=== PATIENT | female | born 1995 | race African-American/Black ===

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

== ENCOUNTER → 2017-01-28 | Outpatient (CLI) | payer OTHER ==
[~2017-01-28] MED LIST changes: +ONDA4TAB10 SL; +PREN1TAB58 PO
--- NOTE | 2017-01-29 08:28 | RAD ---
Obstetrical ultrasound, 01/28/2017: History: screening Transabdominal scans were obtained. There is a single intrauterine fetus in a cephalic orientation. The biparietal diameter measures 4.1 cm compatible with a gestational age of 18-19 weeks. This corresponds well with the other measurements and yields a sonographic EDC of 06/28/2017. This is the same EDC established on the original ultrasound exam of 10/31/2016. Normal activity and heart motion were seen. The heart rate is 144 bpm. No specific abnormality is detected. The placenta is centered laterally on the right with no evidence of a placenta previa. A normal amount of amniotic fluid is present. The cervical length is 3.7 cm. IMPRESSION: Single viable intrauterine fetus of 18-19 weeks gestational age as described above.
== END | disposition home or self-care (01) ==
LOC: US 16:01
PROVIDERS: ATTEND Obstetrics & Gynecology
DX: O09.92 Supervision of high risk pregnancy, unspecified, second trimester (principal); O26.842 Uterine size-date discrepancy, second trimester; Z3A.19 19 weeks gestation of pregnancy
CPT/HCPCS: 76805

== ENCOUNTER 2017-08-29 04:11 | Emergency (ER) | payer SELFPAY, OTHER ==
[2017-08-29 04:26] LABS: URINE HCG POC HCG NEGATIVE (Negative)
[2017-08-29] MEDS: KETOROLAC 30 MG/ML INJ. IV (04:53)
[2017-08-29 05:01] LABS: ADD MAN DIFF? NO
[2017-08-29 05:10] LABS: BASO # 0.1 x10^3/uL (0.0-0.2); BASO % 1 % (0-3); EOS # 0.2 x10^3/uL (0.0-0.7); EOS % 2 % (0-3); HEMATOCRIT 41.7 % (36.0-47.0); HEMOGLOBIN 14.2 g/dL (12.0-15.5); LYMPH # 2.3 x10^3/uL (1.0-4.8); LYMPH % 27 % (24-48); MEAN CORPUSCULAR HEMOGLOBIN 31 pg (25-35); MEAN CORPUSCULAR HGB CONC 34 g/dL (31-37); MEAN CORPUSCULAR VOLUME 90 fL (79-100); MONO # 0.7 x10^3/uL (0.0-1.1); MONO % 8 % (0-9); NEUT # 5.4 x10^3uL (1.8-7.7); NEUT % 62 % (31-73); PLATELET COUNT 369 x10^3/uL (140-400); RED BLOOD COUNT 4.65 x10^6/uL (3.50-5.40); RED CELL DISTRIBUTION WIDTH 13.9 % (11.5-14.5); WHITE BLOOD COUNT 8.7 x10^3/uL (4.0-11.0)
[2017-08-29] MEDS ORDERED: CONTRAST GIVEN MC (05:15)
[2017-08-29 05:17] LABS: ANION GAP 9 (6-14); BLOOD UREA NITROGEN 15 mg/dL (7-20); BUN/CREATININE RATIO 15 (6-20); CALCIUM 9.2 mg/dL (8.5-10.1); CARBON DIOXIDE 24 mmol/L (21-32); CHLORIDE 104 mmol/L (98-107); GFR 86.4; GLUCOSE 112 mg/dL (70-99); POTASSIUM 4.1 mmol/L (3.5-5.1); SODIUM 137 mmol/L (136-145)
[2017-08-29 05:23] LABS: ALBUMIN 3.7 g/dL (3.4-5.0); ALBUMIN/GLOBULIN RATIO 0.9 (1.0-1.7); ALK PHOS 77 U/L (46-116); ALT (SGPT) 29 U/L (14-59); AST (SGOT) 17 U/L (15-37); LIPASE 281 U/L (73-393); TOTAL BILIRUBIN 0.3 mg/dL (0.2-1.0); TOTAL PROTEIN 7.8 g/dL (6.4-8.2)
[2017-08-29] MEDS: IOHEXOL 300 MG/ML 100ML VIAL. IV (05:38)
[2017-08-29 07:00] LABS: BILIRUBIN,URINE NEGATIVE (NEG); CLARITY,URINE CLEAR; COLOR,URINE YELLOW; GLUCOSE,URINE NEGATIVE (NEG); NITRITE,URINE NEGATIVE (NEG); PH,URINE 5.5; PROTEIN,URINE NEGATIVE (NEG-TRACE); UROBILINOGEN,URINE 0.2 mg/dL (0.2 mg/dL)
[2017-08-29 07:01] LABS: BACTERIA,URINE FEW /HPF (0-FEW); SQUAMOUS EPITHELIAL CELL,UR MOD /LPF; WBC,URINE OCC /HPF (0-4)
== END 2017-08-29 07:45 | disposition home or self-care (01) ==
LOC: ER 04:11
DX: N94.6 Dysmenorrhea, unspecified (principal); F41.9 Anxiety disorder, unspecified
CPT/HCPCS: 36415; 74177; 76856; 80053; 81001; 81025; 83690; 85025; 96374; 96375; 99285-25; J1885; J2060; Q9967

== ENCOUNTER 2017-12-08 10:08 | Emergency (ER) | payer SELFPAY, OTHER ==
[2017-12-08 10:51] LABS: URINE HCG POC HCG POSITIVE (Negative)
[2017-12-08 11:10] LABS: BILIRUBIN,URINE NEGATIVE (NEG); CLARITY,URINE CLEAR; COLOR,URINE YELLOW; GLUCOSE,URINE NEGATIVE (NEG); NITRITE,URINE NEGATIVE (NEG); PH,URINE 6.5; PROTEIN,URINE NEGATIVE (NEG-TRACE); UROBILINOGEN,URINE 0.2 mg/dL (0.2 mg/dL)
[2017-12-08 11:26] LABS: RBC,URINE RARE /HPF (0-2)
[2017-12-08 11:27] LABS: BACTERIA,URINE FEW /HPF (0-FEW); SQUAMOUS EPITHELIAL CELL,UR FEW /LPF; WBC,URINE RARE /HPF (0-4)
== END 2017-12-08 12:05 | disposition home or self-care (01) ==
LOC: ER 10:08
DX: Z32.01 Encounter for pregnancy test, result positive (principal); R11.0 Nausea; R42 Dizziness and giddiness
CPT/HCPCS: 81001; 81025; 99285

== ENCOUNTER → 2018-03-06 | Outpatient (CLI) | payer OTHER ==
[2017-12-08 10:53] VITALS: BP 131/59
[~2018-03-06] MED LIST changes: +IBUP-1060 PO; +PROC10TA57 PO
--- NOTE | 2018-03-06 17:20 | RAD ---
Obstetrical ultrasound, 03/06/2018: HISTORY: , check dates There is a single intrauterine fetus in a breech orientation. The biparietal diameter measures 4.6 cm compatible with a gestational age of 20 weeks. This corresponds well with the other measurements and yields an average gestational age of 20 weeks and 1 day and a sonographic EDC of 07/23/2018. Normal activity and heart motion was seen. A four-chamber heart is evident with a heart rate of 145 bpm. Fluid is identified in the bladder and stomach. The visualized portions of the spine and kidneys are unremarkable. A three-vessel umbilical cord is evident with a normal cord insertion site. The placenta lies anteriorly with no evidence of a placenta previa. The amniotic fluid volume is within normal limits with the ROSIE calculated at 15.3. The cervix was not clearly defined, however, it does not appear to be shortened. The maternal ovaries were not visualized. IMPRESSION: Single viable intrauterine fetus of 20 weeks gestational age as described above. Electronically signed by: Madhu Freedman MD (03/06/2018 5:16 PM) [facility]
== END | disposition home or self-care (01) ==
LOC: US 15:11
PROVIDERS: ATTEND Obstetrics & Gynecology
DX: O26.842 Uterine size-date discrepancy, second trimester (principal); Z3A.20 20 weeks gestation of pregnancy
CPT/HCPCS: 76805

== ENCOUNTER 2018-05-22 10:31 | Observation (INO) | payer OTHER ==
[2017-12-08 10:53] VITALS: BP 131/59
[~2018-05-22 10:31] MED LIST changes: +METR-84 PO; -METR500T8 PO
[2018-05-22] MEDS ORDERED: IV RINGERS,LACTATED 1000ML 1,000 ML IV SCH (11:05)
[2018-05-22 11:24] LABS: BILIRUBIN,URINE NEGATIVE (NEG); CLARITY,URINE CLEAR; COLOR,URINE YELLOW; NITRITE,URINE NEGATIVE (NEG); PH,URINE 6.5; PROTEIN,URINE NEGATIVE (NEG-TRACE); UROBILINOGEN,URINE 0.2 mg/dL (0.2 mg/dL)
[2018-05-22 11:33] LABS: SQUAMOUS EPITHELIAL CELL,UR MOD /LPF
[2018-05-22 11:34] LABS: BACTERIA,URINE FEW /HPF (0-FEW); RBC,URINE OCC /HPF (0-2); WBC,URINE OCC /HPF (0-4)
== END 2018-05-22 12:55 | disposition home or self-care (01) ==
LOC: 3 SO LND 10:31
PROVIDERS: ADMIT Obstetrics & Gynecology; ATTEND Obstetrics & Gynecology
DX: O26.893 Other specified pregnancy related conditions, third trimester (principal); N89.8 Other specified noninflammatory disorders of vagina; Z3A.31 31 weeks gestation of pregnancy
CPT/HCPCS: 81001; G0378; G0379

== ENCOUNTER 2020-06-22 04:55 | Emergency (ER) | payer SELFPAY ==
[~2020-06-22] VITALS: Ht 160 cm; Wt 88.6 kg
[~2020-06-22 04:55] MED LIST changes: +METR-34 PO; -METR-84 PO
[2020-06-22 05:00] VITALS: BP 130/70
--- NOTE | 2020-06-22 05:21 | PHYS DOC ---
Past Medical History Past Medical History: Other Additional Past Medical Histor: miscarriage, incompetent cervix Past Surgical History: No Surgical History Additional Past Surgical Histo: vaginal delivery @23wks Smoking Status: Never Smoker Alcohol Use: None Drug Use: None General Adult EDM: Chief Complaint: MULTIPLE COMPLAINTS HPI: HPI: Patient is a 24 year old female presents with a chief complaint cough congestion muscle aches nausea vomiting diarrhea. Patient states symptoms been ongoing for 2 weeks. On exam patient is in no acute distress she is not hypoxic. She is afebrile. Based upon history of present illness and physical exam suspect Covid. Advised patient to take Tylenol ibuprofen as needed for pain or fever. Increase p.o. fluids Covid test will be obtained. Patient advised to quarantine until results. Review of Systems: Review of Systems: Constitutional: Positive fever or chills. [] Eyes: Denies change in visual acuity. [] HENT: Denies nasal congestion or sore throat. [] Respiratory: Positive cough or shortness of breath. [] Cardiovascular: Denies chest pain or edema. [] GI: Denies abdominal pain, positive nausea, vomiting, diarrhea. [] : Denies dysuria. [] Musculoskeletal: Denies back pain or joint pain. [Positive myalgias] Integument: Denies rash. [] Neurologic: Denies headache, focal weakness or sensory changes. [] Endocrine: Denies polyuria or polydipsia. [] Lymphatic: Denies swollen glands. [] Psychiatric: Denies depression or anxiety. [] Heart Score: Risk Factors: Risk Factors: DM, Current or recent (<one month) smoker, HTN, HLP, family history of CAD, obesity. Risk Scores: Score 0 - 3: 2.5% MACE over next 6 weeks - Discharge Home Score 4 - 6: 20.3% MACE over next 6 weeks - Admit for Clinical Observation Score 7 - 10: 72.7% MACE over next 6 weeks - Early Invasive Strategies Allergies: Allergies: Allergies Coded Allergies Type Severity Reaction Last Updated Verified No Known Drug Allergies 12/13/13 No Physical Exam: PE: Constitutional: Well developed, well nourished, no acute distress, non-toxic appearance. [] HENT: Normocephalic, atraumatic, bilateral external ears normal, oropharynx moist, no oral exudates, nose normal. [] Eyes: PERRLA, EOMI, conjunctiva normal, no discharge. [] Neck: Normal range of motion, no tenderness, supple, no stridor. [] Cardiovascular:Heart rate regular rhythm, no murmur [] Lungs & Thorax: Bilateral breath sounds clear to auscultation [] Abdomen: Bowel sounds normal, soft, no tenderness, no masses, no pulsatile masses. [] Skin: Warm, dry, no erythema, no rash. [] Back: No tenderness, no CVA tenderness. [] Extremities: No tenderness, no cyanosis, no clubbing, ROM intact, no edema. [] Neurologic: Alert and oriented X 3, normal motor function, normal sensory function, no focal deficits noted. [] Psychologic: Affect normal, judgement normal, mood normal. [] EKG: EKG: [] Radiology/Procedures: Radiology/Procedures: [] Course & Med Decision Making: Course & Med Decision Making Pertinent Labs and Imaging studies reviewed. (See chart for details) [] Dragon Disclaimer: DragBus[employer] Moos Disclaimer: This electronic medical record was generated, in whole or in part, using a voice recognition dictation system. Departure Departure Impression: Primary Impression: Viral syndrome Additional Impression: Person under investigation for COVID-19 Disposition: 01 DC HOME SELF CARE/HOMELESS Condition: STABLE Referrals: NO PCP (PCP) Patient Instructions: Viral Syndrome Additional Instructions: You have been tested for or diagnosed with COVID-19. It is an infection caused by a new type of coronavirus. COVID-19 will cause cold-like or mild flu symptoms in most. It can cause more severe symptoms like problems breathing in some. There is no treatment for COVID-19. The body will clear the infection over time. Self-care will help to ease discomfort. Steps to Take: Self-Care Rest as needed. Healthy habits may help you feel better. Steps include: Choose healthy foods including fruits and vegetables. Drink water throughout the day. Get plenty of sleep each night. If you smoke, try to quit. It may ease breathing. Avoid alcohol. Keep Others Healthy The virus can spread to others. Droplets are released every time you sneeze or cough. The droplets can get into the mouth, nose, or eyes of people near you and lead to infection. To lower the chances of spreading COVID-19 to others: Stay at home until your doctor has said it is safe to leave. If you tested positive this will mean staying isolated until both of the following are true: At least 7 days have passed since the start of illness. You are free of fever for at least 72 hours without the use of medicine. During this time: - Avoid public areas, events, or transportation. Do not return to work or school until your doctor has said it is safe to do so. - Call ahead if you need to go to a medical center. Let them know you may have COVID-19. It will help them guide you where to go. They may also ask you to wear a facemask when you come to the office. - If you call for emergency medical services, let them know you may have COVID- 19. While at home: - Try to avoid close contact with others. Stay about 6 feet away. - If possible, spend most of your time in a separate room from others. - Use a face mask if you will be in close contact with others such as sharing a room or vehicle. - Have someone wipe down common surfaces in the home. Use household replanter every day on areas like doorknobs, counters, or sinks. - Cough or sneeze into a tissue. Throw the tissue away right after use. If a tissue is not available, cough or sneeze into your elbow. - Wash your hands often. Wash them after sneezing or coughing. Use soap and wa ter and wash for at least 20 seconds. Alcohol based hand oil tank car cleaner can be used if soap and water is not available. - Do not prepare food for others. Avoid sharing personal items like forks, spoons, or toothbrushes. - Avoid close contact with pets while you are sick. There is no evidence of the virus passing to pets. This is a safety step until more is known about this virus. Isolation can be frustrating. Social interaction can help. Keep in touch with friends and family through phone and tech options. You can still interact with others in your home, just keep a safe distance of about 6 feet. Follow-up: Your doctors office will check in with you to see if there are any changes in your health. You may be asked to keep track of symptoms to share with them. They will also let you know when you are clear to be in public again. Problems to Look Out For: Contact your doctor if your recovery is not going as you expect. Get emergency care if you have problems such as: - Trouble breathing - Nonstop chest pain or pressure - Changes in awareness, confusion, or problems waking - Lips or face have bluish color - Worsening of symptoms If you think you have an emergency, call for emergency medical services right away. As taken from [facility] Scripts Azithromycin (ZITHROMAX) 250 Mg Tablet 1 PKG PO UD, #6 TAB Prov: MARCEL MARQUEZ I DO 06/22/20 MARCEL MARQUEZ I DO Jun 22, 2020 05:21
[2020-06-22] MEDS ORDERED: AZIT250T PO (05:29)
--- NOTE | 2020-06-24 08:56 | NUR ---
IP: Informed pt of negative COVID results. Pt verbalized understanding.
== END 2020-06-22 05:34 | disposition home or self-care (01) ==
LOC: ER 04:55
DX: B34.9 Viral infection, unspecified (principal); Z20.828 Contact with and (suspected) exposure to other viral communicable diseases
CPT/HCPCS: 99283; C9803; U0003

== ENCOUNTER 2020-07-29 20:38 | Emergency (ER) | payer SELFPAY ==
[~2020-07-29] VITALS: Ht 162.6 cm; Wt 86.4 kg
[~2020-07-29 20:38] MED LIST changes: +AZIT250T PO
[2020-07-29 21:40] VITALS: BP 153/93
[2020-07-29] MEDS ORDERED: AZITHROMYCIN 250 MG TABLET. PO ONE (22:00)
[2020-07-29] MEDS ORDERED: cefTRIAXone IM 500 MG VIAL. IM ONE (22:00)
--- NOTE | 2020-07-29 22:20 | PHYS DOC ---
Past Medical History Past Medical History: Other Additional Past Medical Histor: miscarriage, incompetent cervix Past Surgical History: No Surgical History Additional Past Surgical Histo: vaginal delivery @23wks Smoking Status: Never Smoker Alcohol Use: None Drug Use: None General Adult EDM: Chief Complaint: VAGINAL PROBLEM HPI: HPI: Patient is a 24 year old female who presents with last 3 days of itchy white vaginal discharge that has a fishy odor smell. She states that she does have sexually-transmitted disease concerns and would like to be treated today. Patient denies abdominal pain, nausea, vomiting, fever, back pain, urinary symptoms, fever, chest pain, cough, shortness of breath. Review of Systems: Review of Systems: Constitutional: Denies fever or chills. [] Eyes: Denies change in visual acuity. [] HENT: Denies nasal congestion or sore throat. [] Respiratory: Denies cough or shortness of breath. [] Cardiovascular: Denies chest pain or edema. [] GI: Denies abdominal pain, nausea, vomiting, bloody stools or diarrhea. [] : Denies dysuria. +Fishy odor smelling vaginal discharge, + vaginal itching [] Musculoskeletal: Denies back pain or joint pain. [] Integument: Denies rash. [] Neurologic: Denies headache, focal weakness or sensory changes. [] Endocrine: Denies polyuria or polydipsia. [] Lymphatic: Denies swollen glands. [] Psychiatric: Denies depression or anxiety. [] Heart Score: Risk Factors: Risk Factors: DM, Current or recent (<one month) smoker, HTN, HLP, family history of CAD, obesity. Risk Scores: Score 0 - 3: 2.5% MACE over next 6 weeks - Discharge Home Score 4 - 6: 20.3% MACE over next 6 weeks - Admit for Clinical Observation Score 7 - 10: 72.7% MACE over next 6 weeks - Early Invasive Strategies Current Medications: Current Medications Medications (Trade) Dose Ordered Sig/[facility] Start Time Stop Time Status Last Admin Dose Admin Azithromycin (Zithromax) 1,000 mg 1X ONCE 07/29/20 22:00 2 22:01 DC 07/29/20 22:08 1,000 MG Ceftriaxone Sodium (Rocephin Im) 500 mg 1X ONCE 07/29/20 22:00 07/29/20 22:01 DC 07/29/20 22:09 500 MG Allergies: Allergies: Allergies Coded Allergies Type Severity Reaction Last Updated Verified No Known Drug Allergies 12/13/13 No Physical Exam: PE: Constitutional: Well developed, well nourished, no acute distress, non-toxic appearance. [] HENT: Normocephalic, atraumatic, bilateral external ears normal, oropharynx moist, no oral exudates, nose normal. [] Eyes: PERRLA, EOMI, conjunctiva normal, no discharge. [] Neck: Normal range of motion, no tenderness, supple, no stridor. [] Cardiovascular:Heart rate regular rhythm, no murmur [] Lungs & Thorax: Bilateral breath sounds clear to auscultation [] Abdomen: Bowel sounds normal, soft, no tenderness, no masses, no pulsatile masses. [] Skin: Warm, dry, no erythema, no rash. [] Back: No tenderness, no CVA tenderness. [] Extremities: No tenderness, no cyanosis, no clubbing, ROM intact, no edema. [] Neurologic: Alert and oriented X 3, normal motor function, normal sensory function, no focal deficits noted. [] Psychologic: Affect normal, judgement normal, mood normal. Normal physical exam [] Current Patient Data: Labs: Microbiology 07/29/20 Wet Prep - Final, Complete Vital Signs: Vital Signs Date Time Temp Pulse Resp B/P (MAP) Pulse Ox O2 Delivery O2 Flow Rate FiO2 07/29/20 21:40 98.6 86 13 153/93 (113) 99 Room Air 98.6 EKG: EKG: [] Radiology/Procedures: Radiology/Procedures: [] Course & Med Decision Making: Course & Med Decision Making Pertinent Labs and Imaging studies reviewed. (See chart for details) See HPI. Alert and oriented x4. Speaks in full complete sentences. Ambulatory with a steady gait. Abdomen is soft and nontender. Skin pink warm and dry. Patient is treated with Rocephin and azithromycin. Pelvic Exam: General Foundry Worker present Abdomen: Nontender External Genitalia: Normal Skin Speculum: Normal vaginal mucosa, white cervical discharge Bimanual: No adnexal masses or tenderness, No CMT [] Dragon Disclaimer: Dragon Disclaimer: This electronic medical record was generated, in whole or in part, using a voice recognition dictation system. Departure Departure Impression: Primary Impression: Concern about sexually transmitted disease in female without diagnosis Additional Impression: Foul smelling vaginal discharge Disposition: 01 DC HOME SELF CARE/HOMELESS Condition: STABLE Referrals: NO PCP (PCP) HERNANDEZ KOLB Jr, MD Patient Instructions: Bacterial Vaginosis, Sexually Transmitted Disease Additional Instructions: Follow up with primary care or gynecologists if needed. Take medication with food and do not drink alcohol with this medication as it will make you sick. Remember that you will be called in 48 hours only if your culture comes back positive. Scripts Metronidazole (METRONIDAZOLE) 500 Mg Tablet 1 TAB PO BID for 7 Days, #14 TAB 0 Refills Prov: DENNIS MORROW APRN 07/29/20 DENNIS MORROW APRN Jul 29, 2020 22:20
[2020-07-29 22:26] LABS: BILIRUBIN,URINE NEGATIVE (NEG); CLARITY,URINE CLEAR; COLOR,URINE YELLOW; NITRITE,URINE NEGATIVE (NEG); PROTEIN,URINE NEGATIVE (NEG-TRACE); UROBILINOGEN,URINE 0.2 mg/dL (0.2 mg/dL)
[2020-07-29 22:29] LABS: U PREG PATIENT NEGATIVE (NEG)
[2020-07-29 22:32] LABS: BACTERIA,URINE FEW /HPF (0-FEW)
[2020-07-29 22:33] LABS: AMORPHOUS SEDIMENT,UR PRESENT /HPF
[2020-07-29 22:34] LABS: RBC,URINE 0 /HPF (0-2)
[2020-07-29] MEDS ORDERED: METR-34 PO (22:47)
[2020-08-01 21:40] LABS: GC PROBE Negative (Negative)
== END 2020-07-29 22:52 | disposition home or self-care (01) ==
LOC: ER 20:38
DX: N89.8 Other specified noninflammatory disorders of vagina (principal); Z20.2 Contact with and (suspected) exposure to infections with a predominantly sexual mode of transmission
CPT/HCPCS: 81001; 81025; 87491; 87591; 96372; 99284; J0696; Q0111

== ENCOUNTER 2020-09-09 14:46 | Emergency (ER) | payer SELFPAY ==
[~2020-09-09] VITALS: Ht 160 cm; Wt 96.0 kg
[2020-09-09] MEDS ORDERED: DIPH,PERTUSS(ACELL),TET VAC/PF 0.5 ML SYRINGE. VAX IM ONE (15:02)
[2020-09-09] MEDS ORDERED: ORPHENADRINE CITRATE 60 MG/2 ML VIAL. ONE (15:02)
[2020-09-09] MEDS ORDERED: fentaNYL PF VIAL 100 MCG/2 ML VIAL ONE (15:02)
[2020-09-09] MEDS ORDERED: NEOMY/BACITR/POLYMYXIN OINT PACKET. TP ONE (15:02)
[2020-09-09 15:31] LABS: BILIRUBIN,URINE NEGATIVE (NEG); CLARITY,URINE CLOUDY; COLOR,URINE YELLOW; NITRITE,URINE NEGATIVE (NEG); PH,URINE 5.5 (<5.0-8.0); PROTEIN,URINE NEGATIVE (NEG-TRACE); UROBILINOGEN,URINE 0.2 mg/dL (0.2 mg/dL)
[2020-09-09 15:44] LABS: RBC,URINE OCC /HPF (0-2)
[2020-09-09 15:45] LABS: BACTERIA,URINE MANY /HPF (0-FEW)
[2020-09-09] MEDS ORDERED: DEXAMETHASONE 4 MG TABLET PO ONE (15:45)
--- NOTE | 2020-09-09 15:45 | PHYS DOC ---
Past Medical History Past Medical History: Other Additional Past Medical Histor: miscarriage, incompetent cervix (ANNETTEDENNIS CUSTOMER SERVICE CLERK) Past Surgical History: No Surgical History Additional Past Surgical Histo: vaginal delivery @23wks (DENNIS MORROW CUSTOMER SERVICE CLERK) Smoking Status: Current Every Day Smoker Alcohol Use: Heavy Drug Use: None (DENNIS MORROW CUSTOMER SERVICE CLERK) General Adult EDM: Chief Complaint: MULTIPLE COMPLAINTS HPI: HPI: Patient is a 24 year old female who presents with nasal congestion throat pain and bilateral ear pain for the last 1 week. She has had vaginal fishy odor smell with white discharge especially after sex or after showering for the last 1 to 2 weeks. She states she is having vaginal irritation and itching. She states she had gonorrhea in the past. She states that she should not have any sexually transmitted disease concerns but would like to be treated prophylactically. Patient denies fever, chest pain, shortness of air, cough, back pain, urinary symptoms, Dizziness, headache you. Past medical history is miscarriage, incompetent cervix, vaginal delivery and smoking. (DENNIS MORROW CUSTOMER SERVICE CLERK) Review of Systems: Review of Systems: Constitutional: Denies fever or chills. [] Eyes: Denies change in visual acuity. [] HENT: + nasal congestion or +sore throat. + Bilateral ear pain [] Respiratory: Denies cough or shortness of breath. [] Cardiovascular: Denies chest pain or edema. [] GI: Denies abdominal pain, nausea, vomiting, bloody stools or diarrhea. [] : Denies dysuria. + Vaginal irritation , + foul vaginal smell with discharge [] Musculoskeletal: Denies back pain or joint pain. [] Integument: Denies rash. [] Neurologic: Denies headache, focal weakness or sensory changes. [] Endocrine: Denies polyuria or polydipsia. [] Lymphatic: Denies swollen glands. [] Psychiatric: Denies depression or anxiety. [] (DENNIS MORROW CUSTOMER SERVICE CLERK) Heart Score: C/O Chest Pain: No Risk Factors: Risk Factors: DM, Current or recent (<one month) smoker, HTN, HLP, family history of CAD, obesity. Risk Scores: Score 0 - 3: 2.5% MACE over next 6 weeks - Discharge Home Score 4 - 6: 20.3% MACE over next 6 weeks - Admit for Clinical Observation Score 7 - 10: 72.7% MACE over next 6 weeks - Early Invasive Strategies (DENNIS MORROW APRN) Current Medications: Current Medications Medications (Trade) Dose Ordered Sig/Jaren Start Time Stop Time Status Last Admin Dose Admin Diphtheria/ Tetanus/Acell Pertussis (ADACEL TDap SYRINGE) 0.5 ml STK-MED ONCE 09/09/20 15:02 09/09/20 15:03 DC Fentanyl Citrate (Fentanyl 2ml Vial) 100 mcg STK-MED ONCE 09/09/20 15:02 09/09/20 15:02 DC Neomycin/ Polymyxin/ Bacitracin (Triple Antibiotic Ointment) 1 pkt STK-MED ONCE 09/09/20 15:02 09/09/20 15:02 DC Orphenadrine Citrate (Norflex) 60 mg STK-MED ONCE 09/09/20 15:02 09/09/20 15:02 DC (DENNIS MORROW APRN) Allergies: Allergies: Allergies Coded Allergies Type Severity Reaction Last Updated Verified No Known Drug Allergies 12/13/13 No (DENNIS MORROW APRN) Physical Exam: PE: Constitutional: Well developed, well nourished, no acute distress, non-toxic appearance. [] HENT: Normocephalic, atraumatic, bilateral external ears normal, oropharynx moist, no oral exudates, nose normal.Bilateral tonsils 1+[] Eyes: PERRLA, EOMI, conjunctiva normal, no discharge. [] Neck: Normal range of motion, no tenderness, supple, no stridor. [] Cardiovascular:Heart rate regular rhythm, no murmur [] Lungs & Thorax: Bilateral breath sounds clear to auscultation [] Abdomen: Bowel sounds normal, soft, no tenderness, no masses, no pulsatile masses. [] Skin: Warm, dry, no erythema, no rash. [] Back: No tenderness, no CVA tenderness. [] Extremities: No tenderness, no cyanosis, no clubbing, ROM intact, no edema. [] Neurologic: Alert and oriented X 3, normal motor function, normal sensory function, no focal deficits noted. [] Psychologic: Affect normal, judgement normal, mood normal. [] (DENNIS MORROW APRN) Current Patient Data: Labs: Laboratory Tests Test 09/09/20 15:15 POC Urine HCG, Qualitative Hcg negative (Negative) Vital Signs: Vital Signs Date Time Temp Pulse Resp B/P (MAP) Pulse Ox O2 Delivery O2 Flow Rate FiO2 09/09/20 14:55 99.7 100 20 154/71 (98) 100 Room Air 99.7 (DENNIS MORROW APRN) EKG: EKG: [] (DENNIS MORROW APRN) Radiology/Procedures: Radiology/Procedures: [] (DENNIS MORROW APRN) Course & Med Decision Making: Course & Med Decision Making Pertinent Labs and Imaging studies reviewed. (See chart for details) See HPI. Alert and oriented x4. Ambulatory with a steady gait. Skin pink warm and dry. Abdomen is soft and nontender. Vital signs within normal limits. Afebrile. No CVA tenderness. Patient is treated with 1G azithromycin and 500mg Rocephin in the ED. Bilateral tonsils look to be 1+ but I did not see any white patches. Strep is negative. Urinalysis shows contamination. Strep is negative. [] (DENNIS MORROW APRN) Dragon Disclaimer: Dragon Disclaimer: This electronic medical record was generated, in whole or in part, using a voice recognition dictation system. (DENNIS MORROW APRN) Departure Departure Impression: Primary Impression: Bacterial vaginosis Additional Impression: Upper respiratory infection Qualified Codes: J06.9 - Acute upper respiratory infection, unspecified Disposition: 01 DC HOME SELF CARE/HOMELESS Condition: STABLE Referrals: NO PCP (PCP) ABDOULAYE MONACO MD Patient Instructions: Bacterial Vaginosis, Upper Respiratory Infection, Adult Additional Instructions: Take medication with food and as prescribed. Do not drink Alcohol with this medication as it will make you vomit. Drink plenty of fluids. Scripts Metronidazole (METRONIDAZOLE) 500 Mg Tablet 1 TAB PO BID for 7 Days, #14 TAB 0 Refills Prov: DENNIS MORROW APRN 09/09/20 Attending Signature Attending Signature I have reviewed the PA/MAMMA LOGIST's note and plan of care. I was available for consultation as needed during the patient's visit in the emergency department. I agree with the clinical impression, plan, and disposition. (TONY,DENNIS CAMPOS APRN Sep 09, 2020 15:45 ABDOULAYE TONY DO Sep 09, 2020 18:53
[2020-09-09] MEDS ORDERED: cefTRIAXone IM 500 MG VIAL. IM ONE (16:15)
[2020-09-09] MEDS ORDERED: AZITHROMYCIN 250 MG TABLET. PO ONE (16:15)
[2020-09-09] MEDS ORDERED: AMOX500C PO (16:15)
[2020-09-09] MEDS ORDERED: METR-34 PO (16:19)
[2020-09-09 17:00] VITALS: BP 126/79
[2020-09-09] MEDS ORDERED: ONDANSETRON ODT 4 MG TAB.RAPDIS. PO ONE (17:00)
== END 2020-09-09 17:00 | disposition home or self-care (01) ==
LOC: ER 14:46
DX: N76.0 Acute vaginitis (principal); B96.89 Other specified bacterial agents as the cause of diseases classified elsewhere; J06.9 Acute upper respiratory infection, unspecified; F17.200 Nicotine dependence, unspecified, uncomplicated; F10.20 Alcohol dependence, uncomplicated; Y90.9 Presence of alcohol in blood, level not specified
CPT/HCPCS: 81001; 81025; 87070; 87086; 87491; 87591; 87880; 96372; 99284; J0696; Q0111

== ENCOUNTER 2021-02-19 17:09 | Emergency (ER) | payer SELFPAY ==
[~2021-02-19] VITALS: Ht 162.6 cm; Wt 87.8 kg
[~2021-02-19 17:09] MED LIST changes: +AMOX500C PO
[2021-02-19 17:53] LABS: BILIRUBIN,URINE NEGATIVE (NEG); CLARITY,URINE CLEAR; COLOR,URINE YELLOW; NITRITE,URINE NEGATIVE (NEG); PH,URINE 5.5 (<5.0-8.0); PROTEIN,URINE NEGATIVE (NEG-TRACE); UROBILINOGEN,URINE 0.2 mg/dL (0.2 mg/dL)
--- NOTE | 2021-02-19 17:57 | PHYS DOC ---
Past Medical History Past Medical History: Other Additional Past Medical Histor: miscarriage, incompetent cervix (GERSON RODRIGUEZ IMMIGRATION PATROL INSPECTOR) Past Surgical History: No Surgical History Additional Past Surgical Histo: vaginal delivery @23wks (GERSON RODRIGUEZ IMMIGRATION PATROL INSPECTOR) Smoking Status: Current Every Day Smoker Alcohol Use: Heavy Drug Use: None (GERSON RODRIGUEZ JANNETTE) General Adult EDM: Chief Complaint: VAGINAL PROBLEM HPI: HPI: Patient is a 25 year old female who presents to the ED today complaining of vaginal discharge and for 2 weeks. Patient is also concerned about STDs. Denies any abdominal pain. Patient reports she has 2 male sex partners. (GERSON RODRIGUEZ IMMIGRATION PATROL INSPECTOR) Review of Systems: Review of Systems: Constitutional: Denies fever or chills. [] GI: Reports vaginal discharge. Denies abdominal pain, nausea, vomiting, bloody stools or diarrhea. [] : Denies dysuria. [] Musculoskeletal: Denies back pain or joint pain. [] Integument: Denies rash. [] Neurologic: Denies headache, focal weakness or sensory changes. [] ] Psychiatric: Denies depression or anxiety. [] (GERSON RODRIGUEZ IMMIGRATION PATROL INSPECTOR) Heart Score: C/O Chest Pain: N/A Risk Factors: Risk Factors: DM, Current or recent (<one month) smoker, HTN, HLP, family history of CAD, obesity. Risk Scores: Score 0 - 3: 2.5% MACE over next 6 weeks - Discharge Home Score 4 - 6: 20.3% MACE over next 6 weeks - Admit for Clinical Observation Score 7 - 10: 72.7% MACE over next 6 weeks - Early Invasive Strategies (GERSON RODRIGUEZ IMMIGRATION PATROL INSPECTOR) Current Medications: Current Medications Medications (Trade) Dose Ordered Sig/Jaren Start Time Stop Time Status Last Admin Dose Admin Ceftriaxone Sodium (Rocephin Im) 500 mg 1X ONCE 02/19/21 18:00 02/19/21 18:01 Doxycycline Hyclate (Vibra-Tab) 100 mg 1X ONCE 02/19/21 18:00 02/19/21 18:01 Metronidazole (Flagyl) 2,000 mg 1X ONCE 02/19/21 18:00 02/19/21 18:01 (GERSON RODRIGUEZ Kiersten IMMIGRATION PATROL INSPECTOR) Allergies: Allergies: Allergies Coded Allergies Type Severity Reaction Last Updated Verified No Known Drug Allergies 6/29/14 No (GERSON RODRIGUEZ APRN) Physical Exam: PE: Constitutional: Well developed, well nourished, no acute distress, non-toxic appearance. [] Abdomen: Bowel sounds normal, soft, no tenderness, no masses, no pulsatile masses. [] Pelvic exam External pelvic appears normal, cervix is visualized, no CMT, no CMT, no adnexal tenderness, mild amount of white discharge in the vaginal vault Skin: Warm, dry, no erythema, no rash. [] Back: No tenderness, no CVA tenderness. [] Extremities: No tenderness, no cyanosis, no clubbing, ROM intact, no edema. [] Neurologic: Alert and oriented X 3, normal motor function, normal sensory function, no focal deficits noted. [] Psychologic: Affect normal, judgement normal, mood normal. [] (GERSON RODRIGUEZ APRN) Current Patient Data: Labs: Laboratory Tests Test 02/19/21 17:19 POC Urine HCG, Qualitative Hcg negative (Negative) Vital Signs: Vital Signs Date Time Temp Pulse Resp B/P (MAP) Pulse Ox O2 Delivery O2 Flow Rate FiO2 02/19/21 17:11 97.7 104 18 152/65 (95) 97 Room Air 97.7 (GERSON RODRIGUEZ APRN) EKG: EKG: [] (GERSON RODRIGUEZ APRN) Radiology/Procedures: Radiology/Procedures: [] (GERSON RODRIGUEZ APRN) Course & Med Decision Making: Course & Med Decision Making Pertinent Labs and Imaging studies reviewed. (See chart for details) This is a 25-year-old female patient presenting to the ED today with vaginal discharge and concern for STDs, symptoms for 2 weeks. Patient was treated prophylaxis in the ED. Negative urine hCG, urine analysis negative for UTI. Wet prep noted for bacterial vaginosis discharged on Flagyl. Discharge to home. STD education provided. Follow-up with PCP or [facility]ENE[facility] JOINTER HELPER in 1 to 2 weeks (GERSON RODRIGUEZ APRN) Dragon Disclaimer: Dragon Disclaimer: This electronic medical record was generated, in whole or in part, using a voice recognition dictation system. (GERSON RODRIGUEZ APRN) Departure Departure Impression: Primary Impression: Concern about sexually transmitted disease in female without diagnosis Additional Impression: Bacterial vaginosis Disposition: HOME / SELF CARE / HOMELESS Condition: STABLE Referrals: NO PCP (PCP) ABDOULAYE MONACO MD follow up in two weeks Patient Instructions: Bacterial Vaginosis, [id number] Additional Instructions: You have bacterial vaginosis, please complete the prescribed antibiotics. You were treated for STDs in the ED. Ensure your partners know you were treated for STDs and ask them to seek treatment too. Follow-up with your primary care doctor or [facility] JOINTER HELPER in 1 to 2 weeks Scripts Metronidazole (FLAGYL) 500 Mg Tablet 1 TAB PO BID, #14 TAB Prov: GERSON RODRIGUEZ APRN 02/19/21 Attending Signature Attending Signature I have reviewed the PA/RESTAURANT GENERAL MANAGER's note and plan of care. I was available for consultation as needed during the patient's visit in the emergency department. I agree with the clinical impression, plan, and disposition. (ABDOULAYE TONY DO) GERSON RODRIGUEZ APRN Feb 19, 2021 17:57 ABDOULAYE TONY DO Feb 20, 2021 00:30
[2021-02-19] MEDS ORDERED: metroNIDAZOLE 500 MG TABLET PO ONE (18:00)
[2021-02-19] MEDS ORDERED: DOXYCYCLINE HYCLATE 100 MG TABLET PO ONE (18:00)
[2021-02-19] MEDS ORDERED: cefTRIAXone IM 500 MG VIAL. IM ONE (18:00)
[2021-02-19 18:06] LABS: BACTERIA,URINE FEW /HPF (0-FEW); RBC,URINE 0 /HPF (0-2); WBC,URINE 0 /HPF (0-4)
[2021-02-19] MEDS ORDERED: LIDOCAINE 1% PF 2 ML VIAL. ONE (18:07)
[2021-02-19] MEDS ORDERED: METR500T PO (19:16)
[2021-02-19 19:24] VITALS: BP 119/68
[2021-02-21 18:25] LABS: GC PROBE Negative (Negative)
== END 2021-02-19 19:30 | disposition home or self-care (01) ==
LOC: ER 17:09
DX: N76.0 Acute vaginitis (principal); B96.89 Other specified bacterial agents as the cause of diseases classified elsewhere; Z20.2 Contact with and (suspected) exposure to infections with a predominantly sexual mode of transmission; F17.200 Nicotine dependence, unspecified, uncomplicated
CPT/HCPCS: 81001; 81025; 87491; 87591; 96372; 99285; J0696; Q0111

== ENCOUNTER 2021-10-05 01:15 | Emergency (ER) | payer SELFPAY ==
[~2021-10-05] VITALS: Ht 160 cm; Wt 91.0 kg
--- NOTE | 2021-10-05 02:42 | ED.ADGEN ---
Past Medical History Past Medical History: Other Additional Past Medical Histor: miscarriage, incompetent cervix Past Surgical History: No Surgical History Additional Past Surgical Histo: vaginal delivery @23wks Smoking Status: Current Every Day Smoker Alcohol Use: Heavy Drug Use: None General Adult EDM: Chief Complaint: VAGINAL BLEEDING HPI: HPI: Patient is a 26 year old female coming in for a small amount of vaginal spotting she noticed when she was using the restroom. Says the spotting happened just prior to coming to the emergency department. Patient states she had a little bit of pelvic pain after seeing the spotting. Last sexual activity yesterday. Patient states her last menstrual cycle was 2 weeks ago, normally has menstrual cycles. Never had breakthrough bleeding before. Denies any recent stressors, medications, or possibility of . Denies any vaginal discharge. No history of blood thinners or anemia Review of Systems: Review of Systems: All other systems within normal limits except for as noted in the HPI Allergies: Allergies: Allergies Coded Allergies Type Severity Reaction Last Updated Verified No Known Drug Allergies 12/13/13 No Physical Exam: PE: Constitutional: Well developed, well nourished, no acute distress, non-toxic appearance. [] HENT: Normocephalic, atraumatic, bilateral external ears normal, nose normal. [] Eyes: PERRLA, conjunctiva normal, no discharge. [] Neck: No rigidity, supple, no stridor. [] Cardiovascular: Regular rate and rhythm, brisk cap refill [] Lungs & Thorax: Non labored symmetric respirations, no tachypnea or respiratory distress [] Abdomen: Soft, nondistended. Skin: Warm, dry, no erythema, no rash. [] Back: Unremarkable Extremities: No deformities, range of motion grossly intact, no lower extremity edema [] Neurologic: Alert and oriented X 3, no focal deficits noted. [] Psychologic: Affect normal, judgement normal, mood normal. [] Current Patient Data: Labs: Laboratory Tests Test 10/05/21 02:45 Urine Collection Type Unknown Urine Color (Auto) Light yellow Urine Turbidity Clear Urine pH (Auto) 5.5 (<5.0-8.0) Urine Specific [place] 1.023 (1.000-1.030) Urine Protein (Auto) Negative mg/dL (Negative) Urine Glucose (Auto)(UA) Negative mg/dL (Negative) Urine Ketones (Auto) Negative mg/dL (Negative) Urine Blood (Auto) Trace (Negative) Urine Nitrite Positive (Negative) Urine Bilirubin (Auto) Negative (Negative) Urine Urobilinogen (Auto) Normal mg/dL (Normal) Urine Leukocyte Esterase (Auto) Negative (Negative) Urine RBC Occ /HPF (0-2) Urine WBC 1-4 /HPF (0-4) Urine Squamous Epithelial Cells Mod /LPF Urine Bacteria Many /HPF (0-FEW) Urine Mucus Mod /LPF Microbiology 10/05/21 Wet Prep - Final, Complete Vital Signs: Vital Signs Date Time Temp Pulse Resp B/P (MAP) Pulse Ox O2 Delivery O2 Flow Rate FiO2 10/05/21 02:28 98.5 92 16 131/78 (95) 99 Room Air 98.5 EKG: EKG: [] Heart Score: C/O Chest Pain: No Risk Factors: Risk Factors: DM, Current or recent (<one month) smoker, HTN, HLP, family history of CAD, obesity. Risk Scores: Score 0 - 3: 2.5% MACE over next 6 weeks - Discharge Home Score 4 - 6: 20.3% MACE over next 6 weeks - Admit for Clinical Observation Score 7 - 10: 72.7% MACE over next 6 weeks - Early Invasive Strategies Radiology/Procedures: Radiology/Procedures: [] Course & Med Decision Making: Course & Med Decision Making RUN DATE: 10/05/21 [facility] *LIVE* PAGE 1 RUN TIME: 329 Specimen Inquiry PATIENT: BRITT DACOSTA ACCT: [id number] LOC: [facility] U: [id number] AGE/SX: 26/F ROOM: RE10/05/[address]: ASHLEY FRANZ MD : 1995 BED: DIS: STATUS: REG ER TLOC: SPEC #: [id number] ILEANA: 10/05/21 STATUS: COMP REQ #: [id number] RECD: 10/05/[address]: ASHLEY FRANZ MD SOURCE: VAGINAL ENTR: 10/05/[address]: ALONSO ANDERSON SPDESC: ORDERED: WET PREP COMMENTS: Has specimen been collected/obtained? Y Procedure Result WET PREP Final YEAST NONE SEEN TRICHOMONAS NONE SEEN CLUE CELLS CLUE CELLS PRESENT WBCS FEW RBCS FEW SQUAMOUS EPS MANY Tal Disclaimer: Tal Disclaimer: This electronic medical record was generated, in whole or in part, using a voice recognition dictation system. Departure Departure Impression: Primary Impression: Bacterial vaginosis Disposition: HOME / SELF CARE / HOMELESS Condition: STABLE Referrals: NO PCP (PCP) Patient Instructions: Bacterial Vaginosis, [id number] Scripts Metronidazole (METRONIDAZOLE) 500 Mg Tablet 1 TAB PO BID for antibiotic for 7 Days, #14 TAB 0 Refills Prov: ASHLEY FRANZ MD 10/05/21 ASHLEY FRANZ MD Oct 05, 2021 02:42
[2021-10-05 03:13] LABS: BACTERIA,URINE MANY /HPF (0-FEW); RBC,URINE OCC /HPF (0-2)
[2021-10-05] MEDS ORDERED: METR-34 PO (03:57)
[2021-10-05 04:25] VITALS: BP 122/86
[2021-10-06 16:11] LABS: GC PROBE Negative (Negative)
== END 2021-10-05 04:26 | disposition home or self-care (01) ==
LOC: ER 01:15
DX: N76.0 Acute vaginitis (principal); B96.89 Other specified bacterial agents as the cause of diseases classified elsewhere; F17.200 Nicotine dependence, unspecified, uncomplicated
CPT/HCPCS: 81001; 87077; 87086; 87186; 87491; 87591; 99283; Q0111